=== PATIENT | male | born 1975 | race Two or more races ===

== ENCOUNTER 2017-11-01 17:46 | Emergency (ER) | payer OTHER ==
[~2017-11-01] VITALS: Ht 177.8 cm; Wt 90.7 kg
[2017-11-01 18:52] LABS: Basophils # (auto) 0 uL; Basophils % (auto) 0.4 % (0.0-2.0); Eosinophils # (auto) 0 uL; Eosinophils % (auto) 0.2 % (0.0-7.0); Hematocrit 40.8 % (41.0-53.0); Hemoglobin 13.6 g/dL (13.5-17.5); Lymphocytes # (auto) 0.9 uL; Lymphocytes % (auto) 13.7 % (10.0-50.0); Mean Corpuscular Hemoglobin 28.8 pg (28.0-32.0); Mean Corpuscular Hgb Conc. 33.3 g/dL (32.0-36.0); Mean Corpuscular Volume 86.7 fL (80.0-100.0); Monocytes # (auto) 0.7 uL; Monocytes % (auto) 10.7 % (0.0-12.0); Neutrophils # (auto) 5.2 uL; Nucleated Red Blood Cells % 0.1 %; Platelet Count (auto) 379 10^3/uL (140-450); White Blood Cell 6.9 10^3/uL (4.4-10.8)
[2017-11-01 19:10] LABS: Albumin 3.4 g/dL (3.4-5.0); BUN/Creatinine Ratio 19.4; Calcium 8.9 mg/dL (8.5-10.1); Potassium 3.4 mmol/L (3.5-5.1)
[2017-11-01 19:12] LABS: Bilirubin, Total 0.3 mg/dL (0.2-1.0)
[2017-11-01] MEDS ORDERED: MORPHINE SULFATE 4 MG/ML SYR/VIAL IV ONE (19:30)
[2017-11-01] MEDS ORDERED: ONDANSETRON HCL 4 MG/2 ML VIAL IV ONE (19:30)
[2017-11-01] MEDS ORDERED: MORPHINE SULF INJ 2 MG/ML SYRINGE 1ML IV ONE (22:00)
[2017-11-01 22:05] VITALS: BP 128/80
== END 2017-11-01 22:16 | disposition home or self-care (01) ==
LOC: ER 17:46 → EDBD 17:46 → EDUNIT# 17:46 → ER 22:16
DX: T81.4XXA Infection following a procedure, initial encounter (principal); M25.561 Pain in right knee; M79.652 Pain in left thigh
CPT/HCPCS: 36415; 80053; 85025; 87077; 87186; 87205; 96374; 96375; 96376; 99284; J2270; J2405

== ENCOUNTER 2018-02-06 16:24 | Emergency (ER) | payer OTHER ==
[~2018-02-06] VITALS: Ht 182.9 cm; Wt 77.1 kg
[2018-02-06 17:01] VITALS: BP 104/65
[2018-02-06] MEDS ORDERED: KETOROLAC TROMETH 60MG/2ML VIAL IM ONE (21:30)
[2018-02-06] MEDS ORDERED: methylPREDNISolone SOD SUCC 125 MG/2 ML VL IM ONE (21:30)
[2018-02-06] MEDS ORDERED: cefTRIAXone SOD 1,000 MG VL IM ONE (21:30)
== END 2018-02-06 22:44 | disposition home or self-care (01) ==
LOC: ER 16:33
DX: L03.115 Cellulitis of right lower limb (principal); G89.29 Other chronic pain; M25.571 Pain in right ankle and joints of right foot; Z89.519 Acquired absence of unspecified leg below knee
CPT/HCPCS: 73610; 73700; 96372; 99284; J0696; J1885; J2930

== ENCOUNTER 2021-07-21 09:33 | Inpatient (IN) | payer OTHER ==
[~2021-07-21] VITALS: Ht 182.9 cm; Wt 97.8 kg
[2021-07-21] MEDS ORDERED: ACETAMINOPHEN 650 mg PER 20.3 mL UD PO ONE (09:45)
[2021-07-21] MEDS ORDERED: ACETAMINOPHEN 500 MG TAB PO ONE (10:00)
[2021-07-21] MEDS ORDERED: SODIUM CHLORIDE 0.9% 1,000 ML IV ONE ×2 (10:00→19:15)
[2021-07-21 10:34] LABS: Basophils # (auto) 0.2 10 ^3/uL (0-0.2); Basophils % (auto) 2.8 % (0.0-2.0); Eosinophils # (auto) 0 10 ^3/uL (0-0.8); Eosinophils % (auto) 0.3 % (0.0-7.0); Hematocrit 47.9 % (41.0-53.0); Hemoglobin 16.4 g/dL (13.5-17.5); Lymphocytes # (auto) 0.7 10 ^3/uL (0.4-5.4); Lymphocytes % (auto) 8.2 % (10.0-50.0); Mean Corpuscular Hemoglobin 29.5 pg (28.0-32.0); Mean Corpuscular Hgb Conc. 34.2 g/dL (32.0-36.0); Mean Corpuscular Volume 86.1 fL (80.0-100.0); Monocytes # (auto) 0.7 10 ^3/uL (0-1.3); Monocytes % (auto) 8.8 % (0.0-12.0); Neutrophils # (auto) 6.5 10 ^3/uL (1.6-8.6); Neutrophils % (auto) 79.9 % (37.0-80.0); Nucleated Red Blood Cells % 0.3 %; Red Blood Cells 5.57 10^6/uL (4.5-5.90); Red Cell Distribution Width 14.5 % (11.8-14.3); White Blood Cell 8.1 10^3/uL (4.4-10.8)
[2021-07-21 10:46] LABS: Lactic Acid w/Reflex 4.8 mmol/L (0.4-2.0)
[2021-07-21 10:49] LABS: INR 1.08 (0.9-1.15); Partial Thromboplastin Time 27.3 sec (23.6-33.0)
[2021-07-21 11:55] LABS: Albumin 3.1 g/dL (3.4-5.0); Calcium 8.6 mg/dL (8.5-10.1); Potassium 3.1 mmol/L (3.5-5.1)
[2021-07-21 11:59] LABS: BUN/Creatinine Ratio 13.3; Bilirubin, Total 0.6 mg/dL (0.2-1.0); Total Protein 7.1 g/dL (6.4-8.2)
[2021-07-21] MEDS ORDERED: IOHEXOL 300 MG/ML 100ML BOTTLE IJ ONE (12:14)
[2021-07-21] MEDS ORDERED: MORPHINE SULFATE INJ 2 MG/ml SYRG IV ONE (12:15)
[2021-07-21] MEDS ORDERED: POTASSIUM EFFERVESENT TAB 25 MEQ PO ONE (12:15)
[2021-07-21] MEDS ORDERED: VANCOMYCIN 1GM/250ML 250 ML IV ONE (12:15)
[2021-07-21] MEDS ORDERED: PIPERACILLIN-TAZOB 3.375GM 100 ML IV ONE (12:15)
[2021-07-21] MEDS: SODIUM CHLORIDE 0.9% 1,000 ML IV ONE ×2 (12:40→20:00)
[2021-07-21] MEDS ORDERED: KETOROLAC TROMETH 30 MG/ML 1ML VIAL IV ONE (16:30)
[2021-07-21 16:32] LABS: Urine Bacteria NONE SEEN /hpf (None Seen); Urine Blood Negative /uL (Negative); Urine WBC 6 /hpf (0 - 3)
[2021-07-21 16:33] LABS: Urine Specific Gravity > 1.050 (1.001-1.035)
[2021-07-21] MEDS ORDERED: MORPHINE SULFATE INJ 2 MG/ml SYRG IV PRN (19:15)
[2021-07-21] MEDS: MORPHINE SULFATE 4 MG/ML SYR/VIAL IV PRN ×2 (20:22→23:09)
[2021-07-21 20:40] LABS: Magnesium 2.4 mg/dL (1.6-2.6)
[2021-07-21 20:45] LABS: Lactic Acid w/Reflex 2.1 mmol/L (0.4-2.0)
[2021-07-21 21:02] LABS: Cholesterol 98 mg/dL (< 200); HDL Cholesterol 42 mg/dL (40-59); LDL Cholesterol 45 mg/dL (< 100); Triglycerides 128 mg/dL (< 150)
[2021-07-21] MEDS: FOLIC ACID 1 MG, MULTIPLE VITAMIN 10 ML, THIAMINE INJ 100 MG in SODIUM CHLORIDE 0.9% 1,... INJ SCH (21:10)
[2021-07-21 21:43] LABS: Amphetamine Screen, Urine POSITIVE (NEGATIVE); Barbiturate Scree,Urine NEGATIVE (NEGATIVE); Benzodiazephine Screen, Urine NEGATIVE (NEGATIVE); Cannabinoid Screen, Urine POSITIVE (NEGATIVE); Cocaine Screen, Urine NEGATIVE (NEGATIVE); Phencyclidine Screen, Urine NEGATIVE (NEGATIVE)
[2021-07-21 21:50] LABS: Opiate Scree,Urine POSITIVE (NEGATIVE)
[2021-07-21 22:38] VITALS: BP 139/83
[2021-07-22] MEDS: MORPHINE SULFATE 4 MG/ML SYR/VIAL IV PRN ×9 (04:26→22:02)
[2021-07-22 05:00] VITALS: BP 134/87
[2021-07-22 06:33] LABS: Basophils # (auto) 0 10 ^3/uL (0-0.2); Basophils % (auto) 0.5 % (0.0-2.0); Eosinophils # (auto) 0 10 ^3/uL (0-0.8); Eosinophils % (auto) 0.6 % (0.0-7.0); Hematocrit 41.4 % (41.0-53.0); Hemoglobin 14.3 g/dL (13.5-17.5); Lymphocytes # (auto) 0.5 10 ^3/uL (0.4-5.4); Lymphocytes % (auto) 7.2 % (10.0-50.0); Mean Corpuscular Hemoglobin 29.6 pg (28.0-32.0); Mean Corpuscular Hgb Conc. 34.5 g/dL (32.0-36.0); Mean Corpuscular Volume 85.7 fL (80.0-100.0); Monocytes # (auto) 0.8 10 ^3/uL (0-1.3); Monocytes % (auto) 10.1 % (0.0-12.0); Neutrophils # (auto) 6.1 10 ^3/uL (1.6-8.6); Neutrophils % (auto) 81.6 % (37.0-80.0); Red Blood Cells 4.83 10^6/uL (4.5-5.90); Red Cell Distribution Width 14.4 % (11.8-14.3); White Blood Cell 7.5 10^3/uL (4.4-10.8)
[2021-07-22 06:52] LABS: Potassium 3.7 mmol/L (3.5-5.1)
[2021-07-22 07:07] LABS: Albumin 2.6 g/dL (3.4-5.0); Bilirubin, Total 0.5 mg/dL (0.2-1.0); Calcium 7.3 mg/dL (8.5-10.1); Total Protein 5.9 g/dL (6.4-8.2)
[2021-07-22] MEDS: ACETAMINOPHEN 325 MG TAB PO PRN ×3 (07:22→22:07)
[2021-07-22 07:30] VITALS: BP 128/73
[2021-07-22] MEDS ORDERED: cefTRIAXone 1GM/50ML D5W 50 ML IV SCH (09:00)
[2021-07-22] MEDS: ENOXAPARIN SOD 40 MG/0.4 ML SYRINGE SC SCH (09:09)
[2021-07-22] MEDS ORDERED: VANCOMYCIN PER PHARMACY 0 MG IV SCH (11:45)
[2021-07-22 12:22] VITALS: BP 129/80
[2021-07-22] MEDS: PIPERACILLIN-TAZO 4.5GM 100 ML IV SCH ×2 (14:00→21:06)
[2021-07-22] MEDS: SODIUM CHLORIDE 0.9% 1,000 ML IV SCH ×2 (15:01→21:45)
[2021-07-22] MEDS: VANCOMYCIN 1GM/250ML 250 ML IV SCH ×3 (15:02→22:10)
[2021-07-22] MEDS: FOLIC ACID 1 MG, MULTIPLE VITAMIN 10 ML, THIAMINE INJ 100 MG in SODIUM CHLORIDE 0.9% 1,... INJ SCH (15:02)
[2021-07-22 16:42] VITALS: BP 142/82
[2021-07-22 16:43] LABS: Protein, Urine 155.3 mg/dL (0.0-11.9)
[2021-07-22] MEDS ORDERED: LORazepam 2MG/ML-1ML VIAL IV PRN (16:45)
[2021-07-22] MEDS ORDERED: LORazepam 2MG/ML-1ML VIAL IM ONE (16:45)
[2021-07-22 20:00] VITALS: BP 134/83
[2021-07-22 22:00] VITALS: BP 134/83
[2021-07-23] VITALS (7 sets, daily range): BP systolic 118–188; BP diastolic 71–91
[2021-07-23] MEDS: MORPHINE SULFATE 4 MG/ML SYR/VIAL IV PRN ×4 (00:19→20:00)
[2021-07-23] MEDS: PIPERACILLIN-TAZO 4.5GM 100 ML IV SCH ×3 (05:32→22:00)
[2021-07-23] MEDS: VANCOMYCIN 1GM/250ML 250 ML IV SCH ×3 (06:56→21:12)
[2021-07-23] MEDS: SODIUM CHLORIDE 0.9% 1,000 ML IV SCH ×2 (07:45→17:45)
[2021-07-23] MEDS: ENOXAPARIN SOD 40 MG/0.4 ML SYRINGE SC SCH (09:01)
[2021-07-23] MEDS: FOLIC ACID 1 MG, MULTIPLE VITAMIN 10 ML, THIAMINE INJ 100 MG in SODIUM CHLORIDE 0.9% 1,... INJ SCH (13:16)
[2021-07-23] MEDS ORDERED: IBUPROFEN 800 MG TAB PO ONE (17:30)
[2021-07-23] MEDS ORDERED: SODIUM CHLORIDE 0.9% 3,000 ML IV ONE (17:30)
[2021-07-23 19:02] LABS: Basophils # (auto) 0.2 10 ^3/uL (0-0.2); Basophils % (auto) 3.1 % (0.0-2.0); Eosinophils # (auto) 0.2 10 ^3/uL (0-0.8); Eosinophils % (auto) 2.3 % (0.0-7.0); Hematocrit 37.2 % (41.0-53.0); Hemoglobin 13.2 g/dL (13.5-17.5); Lymphocytes # (auto) 0.9 10 ^3/uL (0.4-5.4); Lymphocytes % (auto) 12.1 % (10.0-50.0); Mean Corpuscular Hemoglobin 29.9 pg (28.0-32.0); Mean Corpuscular Hgb Conc. 35.4 g/dL (32.0-36.0); Mean Corpuscular Volume 84.5 fL (80.0-100.0); Monocytes % (auto) 13.7 % (0.0-12.0); Neutrophils # (auto) 5.2 10 ^3/uL (1.6-8.6); Neutrophils % (auto) 68.8 % (37.0-80.0); Nucleated Red Blood Cells % 0.5 %; Red Cell Distribution Width 14.1 % (11.8-14.3); White Blood Cell 7.5 10^3/uL (4.4-10.8)
[2021-07-23 19:26] LABS: Albumin 2.2 g/dL (3.4-5.0); BUN/Creatinine Ratio 10.4; Calcium 7.5 mg/dL (8.5-10.1); Potassium 3.2 mmol/L (3.5-5.1)
[2021-07-23 19:28] LABS: Bilirubin, Total 0.4 mg/dL (0.2-1.0); Total Protein 5.3 g/dL (6.4-8.2)
[2021-07-23] MEDS ORDERED: LORazepam 2MG/ML-1ML VIAL IV PRN (21:45)
[2021-07-24] MEDS: VANCOMYCIN 1GM/250ML 250 ML IV SCH ×4 (03:07→21:06)
[2021-07-24] MEDS: SODIUM CHLORIDE 0.9% 1,000 ML IV SCH ×2 (03:09→13:45)
[2021-07-24] MEDS: MORPHINE SULFATE 4 MG/ML SYR/VIAL IV PRN ×4 (04:55→20:19)
[2021-07-24 05:00] VITALS: BP 133/90
[2021-07-24] MEDS: PIPERACILLIN-TAZO 4.5GM 100 ML IV SCH ×3 (05:53→22:19)
[2021-07-24] MEDS: ENOXAPARIN SOD 40 MG/0.4 ML SYRINGE SC SCH (08:35)
[2021-07-24 13:00] VITALS: BP 134/79
[2021-07-24] MEDS: FOLIC ACID 1 MG, MULTIPLE VITAMIN 10 ML, THIAMINE INJ 100 MG in SODIUM CHLORIDE 0.9% 1,... INJ SCH (13:34)
[2021-07-24 14:22] LABS: Basophils # (auto) 0.1 10 ^3/uL (0-0.2); Basophils % (auto) 0.9 % (0.0-2.0); Eosinophils # (auto) 0.3 10 ^3/uL (0-0.8); Eosinophils % (auto) 3.9 % (0.0-7.0); Hematocrit 41.5 % (41.0-53.0); Hemoglobin 14.4 g/dL (13.5-17.5); Lymphocytes % (auto) 13.5 % (10.0-50.0); Mean Corpuscular Hemoglobin 29.5 pg (28.0-32.0); Mean Corpuscular Hgb Conc. 34.6 g/dL (32.0-36.0); Mean Corpuscular Volume 85.3 fL (80.0-100.0); Monocytes # (auto) 0.9 10 ^3/uL (0-1.3); Neutrophils # (auto) 5.2 10 ^3/uL (1.6-8.6); Neutrophils % (auto) 69.7 % (37.0-80.0); Nucleated Red Blood Cells % 0.3 %; Red Blood Cells 4.86 10^6/uL (4.5-5.90); Red Cell Distribution Width 14.2 % (11.8-14.3); White Blood Cell 7.4 10^3/uL (4.4-10.8)
[2021-07-24 14:42] LABS: Albumin 2.2 g/dL (3.4-5.0); BUN/Creatinine Ratio 8.5; Calcium 7.7 mg/dL (8.5-10.1); Magnesium 2.1 mg/dL (1.6-2.6); Potassium 3.3 mmol/L (3.5-5.1)
[2021-07-24 14:44] LABS: Bilirubin, Total 0.5 mg/dL (0.2-1.0); Total Protein 5.8 g/dL (6.4-8.2)
[2021-07-24] MEDS: ACETAMINOPHEN 325 MG TAB PO PRN (16:01)
[2021-07-24 17:00] VITALS: BP 134/79
[2021-07-24] MEDS: HYDROcodone-ACET 5/325MG TAB PO PRN (17:12)
[2021-07-24 20:00] VITALS: BP 113/81
[2021-07-24 22:00] VITALS: BP 113/81
[2021-07-24] MEDS: PANTOPRAZOLE 40 MG/10 ML VIAL INJ IV SCH (22:23)
[2021-07-24] MEDS: SUCRALFATE 1 GM TAB PO SCH (22:24)
[2021-07-25] VITALS (7 sets, daily range): BP systolic 115–133; BP diastolic 70–85
[2021-07-25] MEDS: SODIUM CHLORIDE 0.9% 1,000 ML IV SCH ×3 (01:31→15:45)
[2021-07-25] MEDS: VANCOMYCIN 1GM/250ML 250 ML IV SCH ×2 (04:12→09:00)
[2021-07-25] MEDS: MORPHINE SULFATE 4 MG/ML SYR/VIAL IV PRN ×5 (04:28→22:33)
[2021-07-25] MEDS: PIPERACILLIN-TAZO 4.5GM 100 ML IV SCH ×3 (05:31→22:23)
[2021-07-25] MEDS: SUCRALFATE 1 GM TAB PO SCH ×4 (07:00→22:23)
[2021-07-25 08:54] LABS: Albumin 2.3 g/dL (3.4-5.0); Bilirubin, Direct 0.2 mg/dL (0-0.2); Magnesium 2.3 mg/dL (1.6-2.6); Potassium 3.2 mmol/L (3.5-5.1)
[2021-07-25 08:57] LABS: Bilirubin, Total 0.5 mg/dL (0.2-1.0); Total Protein 5.7 g/dL (6.4-8.2)
[2021-07-25] MEDS: PANTOPRAZOLE 40 MG/10 ML VIAL INJ IV SCH ×2 (10:19→22:22)
[2021-07-25] MEDS: ENOXAPARIN SOD 40 MG/0.4 ML SYRINGE SC SCH (10:35)
[2021-07-25] MEDS ORDERED: POTASSIUM CHL 20 Meq TABLET PO ONE (12:15)
[2021-07-26] MEDS ORDERED: LORazepam 2MG/ML-1ML VIAL IV PRN (00:15)
[2021-07-26] MEDS: HYDROcodone-ACET 5/325MG TAB PO PRN (00:49)
[2021-07-26] MEDS: VANCOMYCIN 1GM/250ML 250 ML IV SCH ×2 (01:26→09:58)
[2021-07-26 05:00] VITALS: BP 126/84
[2021-07-26] MEDS: SUCRALFATE 1 GM TAB PO SCH ×2 (05:54→11:30)
[2021-07-26] MEDS: PIPERACILLIN-TAZO 4.5GM 100 ML IV SCH ×2 (05:55→15:58)
[2021-07-26] MEDS: SODIUM CHLORIDE 0.9% 1,000 ML IV SCH (06:43)
[2021-07-26 08:00] VITALS: BP 124/83
[2021-07-26 08:28] LABS: Albumin 2.3 g/dL (3.4-5.0); BUN/Creatinine Ratio 9.1; Calcium 7.8 mg/dL (8.5-10.1); Potassium 3.4 mmol/L (3.5-5.1)
[2021-07-26 08:31] LABS: Bilirubin, Total 0.4 mg/dL (0.2-1.0); Total Protein 5.7 g/dL (6.4-8.2)
[2021-07-26 09:19] VITALS: BP 124/83
[2021-07-26] MEDS ORDERED: THIAMINE HCL 100 MG TAB PO SCH (10:00)
[2021-07-26] MEDS: ENOXAPARIN SOD 40 MG/0.4 ML SYRINGE SC SCH (10:00)
[2021-07-26] MEDS: PANTOPRAZOLE 40 MG/10 ML VIAL INJ IV SCH (10:00)
[2021-07-26] MEDS ORDERED: MULTIPLE VITAMIN TAB PO SCH (10:00)
[2021-07-26] MEDS ORDERED: FOLIC ACID 1 MG TAB PO SCH (10:00)
[2021-07-26 13:00] VITALS: BP 121/70
[2021-07-26] MEDS ORDERED: POTASSIUM EFFERVESENT TAB 25 MEQ PO ONE (13:30)
[2021-07-26] MEDS: MORPHINE SULFATE 4 MG/ML SYR/VIAL IV PRN (15:57)
[2021-07-26 16:17] VITALS: BP 121/70
[2021-07-26 17:00] VITALS: BP 109/67
== END 2021-07-26 17:20 | disposition short-term general hospital (02) | DRG 871 ==
LOC: ER 09:33 → TELE 19:01 → TELE-WESTW 22:15 → WEST WING 07-25 13:57
PROVIDERS: ADMIT Registered Nurse; ATTEND Internal Medicine
PROC: 05HD33Z Insertion of Infusion Device into Right Cephalic Vein, Percutaneous Approach (ICD-10-PCS; principal; 2021-07-23)
PROC: B54MZZA Ultrasonography of Right Upper Extremity Veins, Guidance (ICD-10-PCS; 2021-07-23)
DX: A41.9 Sepsis, unspecified organism (principal); J69.0 Pneumonitis due to inhalation of food and vomit; N30.00 Acute cystitis without hematuria; E87.6 Hypokalemia; E66.01 Morbid (severe) obesity due to excess calories; F12.90 Cannabis use, unspecified, uncomplicated; F10.10 Alcohol abuse, uncomplicated; F15.90 Other stimulant use, unspecified, uncomplicated; Z20.822 Contact with and (suspected) exposure to COVID-19; R80.9 Proteinuria, unspecified; M54.2 Cervicalgia; R79.89 Other specified abnormal findings of blood chemistry; R51.9 Headache, unspecified; K44.9 Diaphragmatic hernia without obstruction or gangrene; Z53.29 Procedure and treatment not carried out because of patient's decision for other reasons; F17.210 Nicotine dependence, cigarettes, uncomplicated; G89.29 Other chronic pain; K76.0 Fatty (change of) liver, not elsewhere classified; K80.20 Calculus of gallbladder without cholecystitis without obstruction; Y90.0 Blood alcohol level of less than 20 mg/100 ml; M26.623 Arthralgia of bilateral temporomandibular joint; Z82.3 Family history of stroke; Z82.49 Family history of ischemic heart disease and other diseases of the circulatory system; Z83.3 Family history of diabetes mellitus; Z89.512 Acquired absence of left leg below knee; Z68.29 Body mass index [BMI] 29.0-29.9, adult
CPT/HCPCS: 36415; 70487; 71045; 71250; 72141; 74177; 76705; 78226; 80053; 80061; 80076; 80202; 80307; 80320; 81001; 82565; 82570; 83036; 83605; 83615; 83690; 83735; 84132; 84156; 85025; 85610; 85652; 85730; 86141; 86850; 86870; 86900; 86901; 87040; 87077; 87086; 87186; 93005; 93306; 96361; 96365; 96375; 99291; C9113; G0378; J0696; J1885; J2543

== ENCOUNTER 2021-12-15 00:43 | Emergency (ER) | payer OTHER ==
[~2021-12-15] VITALS: Ht 182.9 cm; Wt 97.5 kg
[2021-12-15 02:44] LABS: Basophils # (auto) 0 10 ^3/uL (0-0.2); Basophils % (auto) 0.9 % (0.0-2.0); Eosinophils # (auto) 0 10 ^3/uL (0-0.8); Eosinophils % (auto) 0.5 % (0.0-7.0); Hematocrit 45.3 % (41.0-53.0); Hemoglobin 15.5 g/dL (13.5-17.5); Lymphocytes # (auto) 1.1 10 ^3/uL (0.4-5.4); Mean Corpuscular Hemoglobin 30.5 pg (28.0-32.0); Mean Corpuscular Hgb Conc. 34.2 g/dL (32.0-36.0); Mean Corpuscular Volume 89.1 fL (80.0-100.0); Monocytes # (auto) 0.5 10 ^3/uL (0-1.3); Monocytes % (auto) 10.6 % (0.0-12.0); Neutrophils # (auto) 3.4 10 ^3/uL (1.6-8.6); Red Blood Cells 5.08 10^6/uL (4.5-5.90); Red Cell Distribution Width 14.3 % (11.8-14.3); White Blood Cell 5.2 10^3/uL (4.4-10.8)
[2021-12-15 03:09] LABS: Albumin 3.8 g/dL (3.4-5.0); Calcium 8.8 mg/dL (8.5-10.1); Potassium 3.8 mmol/L (3.5-5.1)
[2021-12-15 03:12] LABS: BUN/Creatinine Ratio 18.4; Bilirubin, Total 0.4 mg/dL (0.2-1.0); Total Protein 6.9 g/dL (6.4-8.2)
[2021-12-15 07:55] VITALS: BP 148/68
[2021-12-15] MEDS ORDERED: ALBE200T9 PO (07:57)
== END 2021-12-15 08:18 | disposition home or self-care (01) ==
LOC: ER 00:45
DX: B83.9 Helminthiasis, unspecified (principal); F17.210 Nicotine dependence, cigarettes, uncomplicated; Z79.899 Other long term (current) drug therapy
CPT/HCPCS: 36415; 80053; 83690; 85025

== ENCOUNTER 2023-08-08 12:46 | Emergency (ER) | payer OTHER ==
[~2023-08-08] VITALS: Ht 177.8 cm; Wt 100.0 kg
[~2023-08-08 12:46] MED LIST: ALBE200T9 PO
[2023-08-08 12:55] VITALS: BP 124/75; PULSE 100; RESP 16; O2SAT 96
== END 2023-08-08 15:15 | disposition left against medical advice (07) ==
LOC: EDBD 12:46 → ER 12:57
DX: M79.604 Pain in right leg (principal); Z53.21 Procedure and treatment not carried out due to patient leaving prior to being seen by health care provider

== ENCOUNTER 2025-02-03 13:05 | Inpatient (IN) | payer OTHER ==
[~2025-02-03] VITALS: Ht 182.9 cm; Wt 105.0 kg
[2025-02-03] MEDS ORDERED: SODIUM CHLORIDE 0.9% 1,000 ML IV ONE (13:15)
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
[2025-02-03 14:03] LABS: Hematocrit 48.1 % (41.0-53.0); Hemoglobin 16.2 g/dL (13.5-17.5); Mean Corpuscular Hemoglobin 29.2 pg (28.0-32.0); Mean Corpuscular Volume 86.5 fL (80.0-100.0); Nucleated Red Blood Cells % 0.1 %
[2025-02-03 14:09] LABS: Chloride 105 mmol/L (98-107); Sodium 137 mmol/L (136-145)
[2025-02-03 14:10] LABS: Anion Gap 12 (5-15); Carbon Dioxide 20 mmol/L (20-31); Potassium 3.5 mmol/L (3.5-5.1)
[2025-02-03 14:11] LABS: Calcium 9.2 mg/dL (8.7-10.4)
[2025-02-03 14:16] LABS: BUN/Creatinine Ratio 14.7 (10.0-20.0); Blood Urea Nitrogen 16 mg/dL (9-23); Glucose 107 mg/dL (74-106)
--- NOTE | 2025-02-03 14:18 | DVH ---
INDICATION: sob TECHNIQUE: Frontal view of the chest. COMPARISON: CHEST WITHOUT CONTRAST on DOS: 07/23/21, CHEST XRAY 1 VIEW on DOS: 07/21/21, CXR1 on DOS: 07/21/21 FINDINGS: Cardiomegaly with CHF. There is no evidence of pleural disease. The lungs are clear. The bony structures of the chest are intact without fracture. IMPRESSION: 1. Cardiomegaly with CHF
[2025-02-03] MEDS: KETOROLAC TROMETH 30 MG/ML 1ML VIAL IV ONE (15:32)
[2025-02-03] MEDS: SODIUM CHLORIDE 0.9% 1,000 ML IV ONE (15:32)
[2025-02-03] MEDS: CLINDAMYCIN 600MG IV 50 ML IV ONE (16:02)
[2025-02-03] MEDS ORDERED: VANCOMYCIN PER PHARMACY 0 MG IV SCH (17:45)
[2025-02-03] MEDS ORDERED: FOLIC ACID 1 MG in D5W 5% 50 ML INJ ONE (17:45)
[2025-02-03] MEDS ORDERED: GABAPENTIN 300 MG CAP PO PRN (17:45)
[2025-02-03] MEDS ORDERED: VANCOMYCIN 1GM/250ML KIT 250 ML IV ONE (17:45)
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
[2025-02-03] MEDS: VANCOMYCIN 1.75GM/350ML 350 ML IV ONE (18:35)
[2025-02-03] MEDS: THIAMINE 100mg/ml INJ (200mg/2ml VIAL) IV ONE (18:36)
[2025-02-03] MEDS: FOLIC ACID 1 MG TAB PO ONE (18:48)
[2025-02-03 18:56] LABS: Alanine Aminotransferase 33 U/L (7-40); Alkaline Phosphatase 91 U/L (46-116); Total Protein 6.4 g/dL (5.7-8.2)
[2025-02-03 18:57] LABS: Albumin 4.0 g/dL (3.2-4.8); Bilirubin, Direct 0.3 mg/dL (<0.3); Bilirubin, Total 0.8 mg/dL (0.2-1.0); Creatine Kinase IFCC 173 U/L (46-171)
[2025-02-03] MEDS: HYDROcodone-ACET 5/325MG TAB PO ONE (19:35)
--- NOTE | 2025-02-03 19:48 | DVH ---
EXAM: CT CT R FOOT WO CONTRAST INDICATION: rule out nacrotizing fascitis TECHNIQUE: Axial images of right foot without contrast have been obtained along with coronal and sagittal reformatted images. All CT scans at this facility use dose modulation, iterative reconstruction, and/or weight based dosing when appropriate to reduce radiation dose to as low as reasonably achievable. COMPARISON: None FINDINGS: BONES: Fusion across the tibiotalar joint articulation. Suspected bone island of the anterolateral inferior aspect of the calcaneus. Diffusely decreased bone mineralization. Osteophytosis along the margin of the lateral malleolus and bone stock loss of the medial malleolus likely related to prior trauma versus postsurgical change. JOINT SPACES: No joint effusion. OTHER: No areas of soft tissue emphysema to suggest necrotizing fasciitis. Overall limited evaluation without intravenous contrast. Extensive surrounding skin thickening and subcutaneous adipose tissue edema which may be compatible with cellulitis/fasciitis. IMPRESSION: 1. Extensive surrounding skin thickening and subcutaneous adipose tissue edema which may be compatible with cellulitis/fasciitis. 2. No areas of soft tissue emphysema to suggest necrotizing fasciitis. 3. Overall limited evaluation without intravenous contrast.
--- NOTE | 2025-02-03 19:58 | DVH ---
EXAM: US BILAT LOWER DVT HISTORY: rule out dvt COMPARISON: ANDREY on DOS: 07/21/21 TECHNIQUE: Duplex Doppler evaluation of the deep venous systems of both lower extremities from the common femoral veins to the popliteal veins including color Doppler and spectral/pulsed waveform analysis was performed. FINDINGS: RIGHT SIDE: The common femoral vein demonstrates appropriate compressibility and waveform variability. There is compressibility/patency of the great saphenous vein at the proximal thigh. The femoral vein demonstrates appropriate compressibility and waveform variability. The deep femoral vein demonstrates appropriate compressibility and waveform variability. The popliteal vein demonstrates appropriate compressibility and waveform variability. There is normal compressibility at the tibioperoneal trunk. LEFT SIDE: The common femoral vein demonstrates appropriate compressibility and waveform variability. There is compressibility/patency of the great saphenous vein at the proximal thigh. The femoral vein demonstrates appropriate compressibility and waveform variability. The deep femoral vein demonstrates appropriate compressibility and waveform variability. The popliteal vein demonstrates appropriate compressibility and waveform variability. There is normal compressibility at the tibioperoneal trunk. IMPRESSION: 1. No right or left femoropopliteal venous thrombosis. If clinical concern/symptoms persist or worsen, short-interval follow-up study is suggested.
[2025-02-03 20:29] LABS: Triglycerides 56 mg/dL (< 150)
[2025-02-03 20:30] VITALS: PULSE 106; RESP 25; O2SAT 96
[2025-02-03 20:31] LABS: Cholesterol 109 mg/dL (< 200); HDL Cholesterol 50 mg/dL (40-59)
[2025-02-03] MEDS: ENOXAPARIN SOD 40 MG/0.4 ML SYRINGE SC SCH (22:00)
[2025-02-03] MEDS: PANTOPRAZOLE 40 MG TAB PO ONE (22:00)
[2025-02-03] MEDS: CLINDAMYCIN 900MG IV 50 ML IV SCH (22:00)
[2025-02-03 23:25] VITALS: O2SAT 96
[2025-02-04 02:26] LABS: Urine Protein, UAD TRACE (Negative)
[2025-02-04 02:29] LABS: Amphetamine Screen, Urine Pos (NEGATIVE); Barbiturate Scree,Urine Neg (NEGATIVE); Benzodiazephine Screen, Urine Neg (NEGATIVE); Cannabinoid Screen, Urine Neg (NEGATIVE); Cocaine Screen, Urine Neg (NEGATIVE); Opiate Scree,Urine Neg (NEGATIVE); Phencyclidine Screen, Urine Neg (NEGATIVE)
[2025-02-04 03:00] LABS: Hematocrit 44.1 % (41.0-53.0); Hemoglobin 14.8 g/dL (13.5-17.5); Mean Corpuscular Hemoglobin 29.0 pg (28.0-32.0); Mean Corpuscular Volume 86.4 fL (80.0-100.0)
[2025-02-04 03:14] LABS: Alanine Aminotransferase 30 U/L (7-40); Albumin 3.8 g/dL (3.2-4.8); Alkaline Phosphatase 88 U/L (46-116); Anion Gap 10 (5-15); BUN/Creatinine Ratio 23.5 (10.0-20.0); Blood Urea Nitrogen 20 mg/dL (9-23); Carbon Dioxide 22 mmol/L (20-31); Chloride 104 mmol/L (98-107); Potassium 3.7 mmol/L (3.5-5.1); Total Protein 6.4 g/dL (5.7-8.2)
[2025-02-04 03:15] LABS: Bilirubin, Total 0.6 mg/dL (0.2-1.0)
[2025-02-04 03:17] LABS: Calcium 8.4 mg/dL (8.7-10.4); Glucose 118 mg/dL (74-106); Sodium 136 mmol/L (136-145)
[2025-02-04] MEDS: HYDROcodone-ACET 5/325MG TAB PO PRN (03:40)
[2025-02-04 04:15] LABS: Total Cells Counted 100.0 (100)
[2025-02-04 04:30] VITALS: PULSE 109; RESP 24; O2SAT 96
[2025-02-04] MEDS: PANTOPRAZOLE 40 MG TAB PO SCH (06:37)
[2025-02-04 08:00] VITALS: PULSE 102; RESP 21; O2SAT 98
[2025-02-04] MEDS: SODIUM CHLORIDE 0.9% 1,000 ML IV ONE ×2 (09:14→14:03)
[2025-02-04] MEDS: VANCOMYCIN 1GM/250ML KIT 250 ML IV SCH ×2 (11:14→21:19)
[2025-02-04 11:16] LABS: Lactic Acid w/Reflex 2.6 mmol/L (0.4-2.0)
[2025-02-04] MEDS ORDERED: LORazepam 2MG/ML-1ML VIAL IV PRN (12:00)
[2025-02-04] MEDS ORDERED: PANTOPRAZOLE 40 MG/10 ML VIAL INJ IV ONE (17:30)
[2025-02-04] MEDS: MORPHINE SULFATE 4 MG/ML SYR/VIAL IV PRN (18:11)
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
[2025-02-04 18:31] VITALS: BP 145/92; PULSE 132; RESP 30; TEMP 102.8; O2SAT 96
[2025-02-04 20:00] VITALS: PULSE 132
[2025-02-04] MEDS: METOPROLOL TARTRATE 1MG/1ML-5ML VIAL IV ONE (20:04)
[2025-02-04 21:00] VITALS: BP 133/86; PULSE 128; RESP 30; TEMP 99.5; O2SAT 92
[2025-02-04] MEDS: ACETAMINOPHEN 325 MG TAB PO ONE (21:18)
--- NOTE | 2025-02-04 22:40 | ECG ---
[facility] Test Date: 2025-02-04 Test Time: 08:54:30 Pat Name: WILMAN VALDEZ Department: ED Room: 0217T A Gender: M Silverlight Developer: TAYLOR : 1975 Requested By: ESME TRAN Order Number: [id number] Reading MD: Brent Rothman Measurements Intervals [place] Rate: 101 P: -13 WI: 196 QRS: 269 QRSD: 110 T: 60 QT: 360 QTc: 467 Interpretive Statements Sinus tachycardia Multiple ventricular premature complexes Abnormal R-wave progression, late transition Inferior infarct, old Electronically Signed On 02-05-2025 17:04:26 PST by Brent Rothman Please click the below link to view image of tracing.
[2025-02-05] VITALS (8 sets, daily range): BP systolic 127–154; BP diastolic 85–90; PULSE 97–113; RESP 16–28; TEMP 97.8–99.7; O2SAT 91–98
[2025-02-05] MEDS: SODIUM CHLORIDE 0.9% 500 ML IV ONE ×2 (07:45→19:09)
[2025-02-05 07:51] LABS: Hematocrit 40.6 % (41.0-53.0); Hemoglobin 13.3 g/dL (13.5-17.5); Mean Corpuscular Hemoglobin 28.4 pg (28.0-32.0); Mean Corpuscular Volume 86.9 fL (80.0-100.0); Nucleated Red Blood Cells % 0.0 %
[2025-02-05 08:04] LABS: Chloride 106 mmol/L (98-107); Sodium 137 mmol/L (136-145)
[2025-02-05 08:05] LABS: Anion Gap 9 (5-15); Calcium 8.4 mg/dL (8.7-10.4); Carbon Dioxide 22 mmol/L (20-31); Potassium 3.4 mmol/L (3.5-5.1)
[2025-02-05 08:10] LABS: BUN/Creatinine Ratio 12.0 (10.0-20.0); Blood Urea Nitrogen 9 mg/dL (9-23)
[2025-02-05 08:14] LABS: Glucose 115 mg/dL (74-106)
[2025-02-05] MEDS: SODIUM CHLORIDE 0.9% 1,000 ML IV ONE (09:00)
[2025-02-05] MEDS: POTASSIUM EFFERVESENT TAB 25 MEQ PO ONE (09:49)
[2025-02-05] MEDS: PANTOPRAZOLE 40 MG/10 ML VIAL INJ IV SCH (10:00)
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
[2025-02-05] MEDS ORDERED: POLYETHYLENE GLYCOL 17 GM PWDR PO PRN (11:30)
[2025-02-05] MEDS: HYDROmorphone HCL 2 MG/ML VL/or syr IV PRN (11:32)
[2025-02-05] MEDS: VANCOMYCIN 1.25GM/250ML 250 ML IV SCH (14:03)
[2025-02-05] MEDS: IOHEXOL 350 MG/ML 100ML IJ ONE (14:03)
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
[2025-02-05] MEDS: SODIUM CHLORIDE 0.9% 1,000 ML IV SCH (18:45)
[2025-02-05] MEDS: ACETAMINOPHEN 325 MG TAB PO PRN (22:03)
[2025-02-05] MEDS: MELATONIN 5 MG TAB PO SCH (23:10)
[2025-02-06] VITALS (8 sets, daily range): BP systolic 115–143; BP diastolic 76–89; PULSE 89–104; RESP 18–20; TEMP 98.2–98.9; O2SAT 95–98
[2025-02-06 06:31] LABS: Hematocrit 42.3 % (41.0-53.0); Hemoglobin 14.0 g/dL (13.5-17.5); Mean Corpuscular Hemoglobin 28.8 pg (28.0-32.0); Mean Corpuscular Volume 87.3 fL (80.0-100.0); Nucleated Red Blood Cells % 0.1 %
[2025-02-06 06:45] LABS: Chloride 106 mmol/L (98-107); Potassium 3.6 mmol/L (3.5-5.1); Sodium 138 mmol/L (136-145)
[2025-02-06 06:46] LABS: Anion Gap 9 (5-15); Carbon Dioxide 23 mmol/L (20-31)
[2025-02-06 06:47] LABS: Calcium 8.6 mg/dL (8.7-10.4)
[2025-02-06 06:52] LABS: BUN/Creatinine Ratio 8.6 (10.0-20.0)
[2025-02-06 07:08] LABS: Blood Urea Nitrogen 6 mg/dL (9-23); Glucose 108 mg/dL (74-106)
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
[2025-02-06] MEDS: HYDROcodone-ACET 5/325MG TAB PO PRN (20:40)
[2025-02-06] MEDS: CLINDAMYCIN 900MG IV 50 ML IV SCH (21:38)
[2025-02-07 01:00] VITALS: BP 119/69; PULSE 95; RESP 16; TEMP 98.2; O2SAT 96
[2025-02-07 04:58] VITALS: BP 144/91; PULSE 98; RESP 17; TEMP 97.8; O2SAT 96
[2025-02-07 06:34] LABS: Hematocrit 40.6 % (41.0-53.0); Hemoglobin 14.0 g/dL (13.5-17.5); Mean Corpuscular Hemoglobin 29.6 pg (28.0-32.0); Mean Corpuscular Volume 86.2 fL (80.0-100.0); Nucleated Red Blood Cells % 0.1 %
[2025-02-07 06:47] LABS: Anion Gap 10 (5-15); Carbon Dioxide 22 mmol/L (20-31); Chloride 105 mmol/L (98-107); Potassium 3.7 mmol/L (3.5-5.1); Sodium 137 mmol/L (136-145)
[2025-02-07 06:53] LABS: BUN/Creatinine Ratio 15.4 (10.0-20.0); Blood Urea Nitrogen 10 mg/dL (9-23)
[2025-02-07 06:54] LABS: Calcium 8.6 mg/dL (8.7-10.4); Glucose 112 mg/dL (74-106)
[2025-02-07 09:00] VITALS: BP_SYST 147; BP_SYST 47; BP_DIAS 78; PULSE 101; RESP 19; TEMP 97.6; O2SAT 98
--- NOTE | 2025-02-07 11:35 | DVHPNRES ---
Progress Note Date Seen: Feb 07, 2025 Resident Creating Document: JHCARLOTA VIEIRA RESIDENT Medical Necessity Reason Pt with a Central, PICC or Fol: No Subjective Review of Systems Patient seen and examined with the bedside Continues to report of severe pain although the swelling on the right lower extremity has been going down Objective vital signs Vital Sign Date Time Temp Pulse Resp B/P (MAP) Pulse Ox O2 Delivery O2 Flow Rate FiO2 02/07/25 09:47 101 19 147/78 02/07/25 09:00 97.6 98 97.6 02/07/25 08:00 Room Air* 0 21 Total Intake and Output 02/06/25 02/06/25 02/07/25 15:00 23:00 07:00 Intake Total 970 ml 800 ml Output Total 850 ml 1600 ml Balance 120 ml -800 ml medications Current Medications Medications Dose Ordered Sig/Edda Route Start Time Stop Time Status Last Admin Dose Admin Ceftriaxone Sodium 50 ml @ 100 mls/hr DAILY@09 IV 02/04/25 09:00 02/07/25 09:43 100 MLS/HR Enoxaparin Sodium 40 mg DAILY@2200 SC 02/03/25 22:00 02/06/25 21:38 40 MG Lorazepam 1 mg Q6HP PRN IV 02/04/25 12:00 Pantoprazole Sodium 40 mg DAILY IV 02/05/25 10:00 02/07/25 09:43 40 MG Acetaminophen 650 mg Q6HP PRN PO 02/05/25 07:45 02/05/25 22:03 650 MG Hydromorphone HCl 0.5 mg Q6HP PRN IV 02/05/25 11:00 02/07/25 09:47 0.5 MG Polyethylene Glycol 17 gm DAILYPRN PRN PO 02/05/25 11:30 Sodium Chloride 1,000 ml @ 125 mls/hr Q8H IV 02/05/25 18:45 02/07/25 02:45 125 MLS/HR Melatonin 5 mg HS PO 02/05/25 23:00 02/06/25 21:37 5 MG Acetaminophen/ Hydrocodone Bitart 1 tab Q4HPRN PRN PO 02/06/25 10:45 02/07/25 06:32 1 TAB Clindamycin Phosphate 50 ml @ 50 mls/hr Q8HR IV 02/06/25 22:00 02/07/25 06:26 50 MLS/HR Examination Skin - Patients patient has a redness in the right lower extremity below the knee extending all the way to his ankle with the associated swelling and extreme tenderness HEENT - normocephalic, atraumatic, moist mucous membranes. Neck - full ROM, no LAD, no JVD Pulmonary - B/L equal breath sounds, no crackles, no wheezing cardiovascular - regular S1,S2 heard, no added sounds, no murmurs heard. GI - soft, nontender abdomen. no hepatospleenomegaly. Bowel sounds normoactive Neurological - Patient is A/O X 4 . Bilateral upper extremity strength 5/5, patient not able to move the right lower extremity because of the pain no facial droop, normal speech, no tremor, no sensory deficiets. laboratory and microbiology Laboratory Tests 02/07/25 06:07 Test 02/07/25 06:07 Range/Units Serum Glucose 112 H 74-106 mg/dL Microbiology Date/Time Source Procedure Growth Status 02/04/25 06:42 Nose MRSA Screen - Final Complete 02/03/25 13:50 Blood Blood Culture - Preliminary NO GROWTH AFTER 72 HOURS OF INCUBATION. Resulted Problem List/Assessment/Plan Problem List/Assessment/Plan Sepsis due to right leg cellulitis Right lower leg cellulitis/fasciitis Status post left below knee amputation Polysubstance abuse Methamphetamine abuse disorder obesity - CT right lower extremity with IV contrast showed no definitive evidence of osteomyelitis or necrotizing fasciitis, subcutaneous adipose tissue edema, likely cellulitis or fasciitis - leg swelling, WBC count improving, continuing on clindamycin and ceftriaxone but since the patient is having pain out of proportion we consulted surgery for further evaluation - IV fluids LR at 100 mL/hour - patient counseled on cessation of alcohol, methamphetamine, smoking for 18 minutes. Patient counseled on diet, exercise, lifestyle modification for 18 minutes PPI prophylaxis: Protonix DVT prophylaxis: Lovenox Time spent: 31 minutes Full code status Case discussed with Dr. Awan Plan discussed with: Patient, Other (REINALDO reaves) My Orders My Orders Orders - CARLOTA WEBB RESIDENT Procedure Category Date Status Time Clindamycin 900mg Iv PHA 02/06/25 In Process (Cleocin Iv) 22:00 * Surgical Consult CONS 02/06/25 Transmitted Complete Blood Count LAB 02/08/25 Verified 04:00 Visit Coding STANDARD RES Billing Provider: LEE AWAN MD Date of Service if different f: Feb 07, 2025 Common Visit Codes: [id number] INP/OBS CARE(HIGH) CARLOTA WEBB RESIDENT Feb 07, 2025 11:35
[2025-02-07 13:00] VITALS: BP 118/84; PULSE 90; RESP 17; TEMP 97.7; O2SAT 93
[2025-02-07 17:00] VITALS: BP 122/84; PULSE 79; RESP 17; TEMP 98.2; O2SAT 93
--- NOTE | 2025-02-07 18:00 | DVH ---
RIGHT Lower Extremity Arterial Duplex Date: 02/07/2025 05:24 PM Clinical History: left lower ext cellulitis, poor flow Comparison: None Technique: Duplex Doppler evaluation including color Doppler and spectral/pulsed waveform analysis of the lower extremity arteries was performed. ( 22 IMAGES OF THE STUDY AND 1 IMAGE OF THE WORKSHEET) Finding: RIGHT: Peak systolic velocities are as follows: POLICE SPECIALIST 118 cm/s TRIPHASIC WAVEFORM Deep femoral 100 cm/s TRIPHASIC WAVEFORM SFA proximal 133 cm/s TRIPHASIC WAVEFORM SFA mid-portion 148 cm/s TRIPHASIC WAVEFORM SFA distal 113 cm/s TRIPHASIC WAVEFORM Popliteal PROXIMALLY : 76 cm/s TRIPHASIC WAVEFORM POPLITEAL ARTERY DISTALLY: 108 CM/SEC; TRIPHASIC WAVEFORM Posterior tibial 91 cm/s triphasic waveform Anterior tibial 86 cm/s triphasic waveform Dorsalis pedis 86 cm/s triphasic waveform The waveforms are triphasic waveform throughout the right lower extremity. REFERENCE VALUES, [facility]) vascular Imaging Lab Criteria: Peak systolic velocity ranges (in cm/sec) are as follows: <150 cm/s - <20 % stenosis 150-200 cm/s - 20-49% stenosis 200-300 cm/s - 50-75% stenosis >300 cm/s -> 75% stenosis IMPRESSION: 1. There is no evidence for peripheral vascular insufficiency in the right lower extremity. 2. No significant focal stenosis is identified.
[2025-02-08] MEDS ORDERED: PANTOPRAZOLE 40 MG TAB PO SCH (06:00)
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
--- NOTE | 2025-02-12 14:04 | DVHPN2 ---
Date of Service: Feb 05, 2025 Billing Provider: RICHARD GARCIA MD Common Visit Codes: [id number] INP/OBS CARE(HIGH) RICHARD GARCIA MD Feb 12, 2025 14:04
== END 2025-02-07 18:20 | disposition left against medical advice (07) | DRG 872 ==
LOC: ER 13:05 → EDBD 13:05 → OVERFLOW 17:44 → TELE-CENTR 02-04 18:29 → CENTRAL 02-06 11:59
PROVIDERS: ADMIT Student in an Organized Health Care Education/Training Program; ATTEND Student in an Organized Health Care Education/Training Program
DX: A41.9 Sepsis, unspecified organism (principal); L03.115 Cellulitis of right lower limb; I50.9 Heart failure, unspecified; F10.139 Alcohol abuse with withdrawal, unspecified; F19.10 Other psychoactive substance abuse, uncomplicated; E66.9 Obesity, unspecified; Z53.29 Procedure and treatment not carried out because of patient's decision for other reasons; F17.210 Nicotine dependence, cigarettes, uncomplicated; K80.20 Calculus of gallbladder without cholecystitis without obstruction; K59.01 Slow transit constipation; Z68.29 Body mass index [BMI] 29.0-29.9, adult; Z89.512 Acquired absence of left leg below knee
CPT/HCPCS: 36415; 71045; 73700; 73701; 80048; 80053; 80061; 80076; 80202; 80307; 80320; 81001; 82550; 83036; 83605; 83880; 84484; 85007; 85025; 85027; 86850; 86870; 86900; 86901; 87040; 87081; 93005; 93926; 93970; 96365; 96368; 96375; 99291; 99292; G0378; J1885; J2470; J3490; J7060